=== PATIENT | female | born 1985 | race Caucasian/White ===

== ENCOUNTER 2021-02-16 15:05 | Emergency (ER) | payer OTHER ==
[~2021-02-16] VITALS: Ht 160 cm; Wt 59.0 kg
[2021-02-16 15:50] LABS: ABSOLUTE BASOPHILS 0.1 thou/uL (0.0-0.2); ABSOLUTE LYMPHOCYTES 2.5 thou/uL (0.8-5.3); ABSOLUTE MONOCYTES 0.5 thou/uL (0.0-1.2); ABSOLUTE NEUTROPHILS 5.1 thou/uL (1.6-8.1); BASOPHILS 0.6 %; EOSINOPHILS 0.5 %; HEMATOCRIT 41.9 % (37.0-47.0); HEMOGLOBIN 13.8 gm/dL (12.0-15.0); LYMPHOCYTES 30.4 %; MCH 29.2 pg (26.0-34.0); MCHC 32.8 g/dL (28.0-37.0); MCV 88.9 fL (80.0-100.0); MONOCYTES 6.1 %; MPV 8.5 fl. (7.2-11.1); NUCLEATED RBCS 0 /100WBC; PLATELET COUNT* 246 thou/uL (150-400); POLYS 62.4 %; RBC 4.72 mil/uL (4.20-5.00); RDW-CV 15.5 % (10.5-14.5); WBC 8.1 thou/uL (4.0-11.0)
[2021-02-16 16:02] LABS: CALCIUM 9.6 mg/dL (8.5-10.1); POTASSIUM 3.4 mmol/L (3.5-5.1)
[2021-02-16 16:08] LABS: URINE BILIRUBIN NEGATIVE (Negative); URINE BLOOD 3+ (Negative); URINE CLARITY CLEAR; URINE COLOR YELLOW; URINE GLUCOSE-RANDOM NEGATIVE (Negative); URINE KETONES NEGATIVE (Negative); URINE LEUKOCYTES 1+ (Negative); URINE NITRITE POSITIVE (Negative); URINE PROTEIN 1+ (Negative); URINE SPECIFIC GRAVITY 1.025 (1.005-1.030)
[2021-02-16 16:16] LABS: AMP/METHAMP POSITIVE (Negative); BARBITURATES Negative (Negative); BENZODIAZEPINES Negative (Negative); COCAINE Negative (Negative); METHADONE Negative (Negative); OPIATES Negative (Negative); PCP Negative (Negative); THC POSITIVE (Negative)
[2021-02-16 16:25] LABS: BACTERIA >30 Many /HPF (None Seen); CASTS None Seen /LPF (None Seen); CRYSTALS None Seen /LPF (None Seen); SQUAMOUS 4-10 Moderate /LPF (0-3); URINE RBC >20 Many /HPF (0-2); URINE WBC >25 Many /HPF (0-5)
[2021-02-16] MEDS ORDERED: CEPHALEXIN500 MG PO (17:59)
[2021-02-17 02:35] VITALS: BP 101/69
== END 2021-02-17 02:38 | disposition home or self-care (01) ==
LOC: M.ERS 15:05
PROVIDERS: Emergency Medicine
DX: N39.0 Urinary tract infection, site not specified (principal); F15.121 Other stimulant abuse with intoxication delirium; R44.2 Other hallucinations